=== PATIENT | female | born 1970 | race Caucasian/White ===

== ENCOUNTER 2024-07-27 07:18 | Emergency (ER) | payer BC, SELFPAY ==
--- NOTE | ~2024-07-27 | XR_ITS ---
Clinical Indication: Chest pain PA and lateral views of the chest: Comparison: None Findings: The lungs are clear, without evidence of focal consolidation or pleural effusion. Cardiome diastinal silhouette is within normal limits. Bones and soft tissues are unremarkable. Impression: Normal chest. Reviewed, dictated and finalized at location . [employer]UDIT SENIOR MANAGER Impression: Normal chest.
--- NOTE | 2024-07-27 07:22 | ECG_ITS ---
Test Date: 2024-07-27 07:28:08 Measurements Intervals [place] Rate: 95 P: 40 MA: 167 QRS: 51 QRSD: 75 T: 35 QT: 338 QTc: 426 Interpretive Statements SINUS RHYTHM INCOMPLETE RIGHT BUNDLE BRANCH BLOCK LOW QRS VOLTAGE IN PRECORDIAL LEADS MINIMAL Q WAVES- INFERIOR LEADS BORDERLINE ST ABNORMALITY- ANTEROLATERAL LEADS BORDERLINE ECG No previous ECG available for comparison Electronically Signed On 07-27-2024 07:40:20 [employer] by Eric Koo D.O.
[2024-07-27 07:23] VITALS: BP 184/117; PULSE 95; RESP 20; TEMP 36.6; O2SAT 99
--- NOTE | 2024-07-27 07:33 | PC.NURSE ---
Patient has history of HTN, but states she moved here 2 months ago and has been out of her lisinopril for 2 weeks.
[2024-07-27 07:38] LABS: Basophils Absolute Auto 0.1 K/mm3 (0.0-0.1); Basophils Percent Auto 1.3 % (0.2-1.2); Eosinophils Absolute Auto 0.2 K/mm3 (0-0.3); Eosinophils Percent Auto 3.3 % (0-4.4); Hemoglobin 13.9 g/dL (12.0-15.0); Immature Granulocyte Absolute 0.02 K/mm3 (0.00-0.031); Immature Granulocyte Percent A 0.3 % (0-0.5); Lymphocytes Absolute Auto 1.62 K/mm3 (0.9-3.2); Lymphocytes Percent Auto 25.7 % (18.3-44.2); Mean Corpuscular HGB Conc 35.6 g/dl (32-36); Mean Corpuscular Hemoglobin 34.8 pg (26-34); Mean Corpuscular Volume 97.5 fl (80-100); Mean Platelet Volume 9.8 fl (7.4-10.4); Monocytes Absolute Auto 0.5 K/mm3 (0.1-0.6); Monocytes Percent Auto 8.4 % (2.6-8.5); Neutrophils Absolute Auto 3.8 K/mm3 (1.3-6.7); Platelet Count Result 263 k/mm3 (150-375); Red Cell Distribution Width 13.6 % (11.5-14.5); White Blood Count 6.3 K/mm3 (4.5-10.0)
[2024-07-27] MEDS: Please add drug allergy info to patient profile. 1 EACH XX (07:45)
--- NOTE | 2024-07-27 07:49 | ED_ITS ---
HPI - General Adult General Chief complaint: Chest Pain Stated complaint: COVID+ yesterday, chest pain all night Time Seen by Provider: 07/27/24 07:31 History of Present Illness HPI narrative: this is a 54-year-old female presenting with COVIDs. She started getting ill 3 days ago including cough and congestion. Since thenshe feels like she has gotten worse and is now having chest congestion, dyspnea exertion, upset stomach and general malaise. She denies fevers/chills/ Sore throat/ abdominal pain, nausea vomiting diarrhea. Patient has received 2 vaccinations against COVID. Related Data Allergies Allergy/AdvReac Type Severity Reaction Status Date / Time shellfish derived Allergy Severe Anaphylaxis Verified 07/27/24 07:53 Course Vital Signs Vital signs: Vital Signs Temperature 97.9 F 07/27/24 07:23 Pulse Rate 95 07/27/24 07:23 Respiratory Rate 20 07/27/24 07:23 Blood Pressure 184/117 H 07/27/24 07:23 Pulse Oximetry 99 07/27/24 07:23 Oxygen Delivery Room Air 07/27/24 07:23 Temperature 97.9 F 07/27/24 07:23 Pulse Rate 95 07/27/24 07:23 Respiratory Rate 20 07/27/24 07:23 Blood Pressure 184/117 H 07/27/24 07:23 Pulse Oximetry 99 07/27/24 07:23 Oxygen Delivery Room Air 07/27/24 07:23 Medical Decision Making [facility] Narrative Medical decision making narrative: -Course: 54-year-old female presenting chest congestion and dyspnea on exertion in setting COVID. workup including troponins BNP D-dimer chest x-ray and EKG were all limits. Vital signs significant for elevated blood pressure although she has hypertension has not on her medications. She will be given a dose of lisinopril and prescription as she obtains a primary care physician. otherwise the patient is well appearing with stable vital signs and has no oxygen requirements. Patient be discharged follow-up with a PCP. Given return precautions worsening shortness of breath chest pain or worsening condition. -DDX includes but is not limited to: COVID, myocarditis, pulmonary embolism, pneumonia, ACS -Co-morbidities complicating care: hypertension-untreated -Social determinants of health: recently moved to town , occasional alcohol and marijuana use -Independent interpretation of studies: labs and imaging reviewed Independent EKG interpretation: Rhythm [sinus], Rate [95], [place] -[normal], [place] -[normal], QRS [narrow], QTC [normal], T waves -[negative for concerning inversions], ST Segments - [Negative for concerning elevations] Final interpretations: [Normal Sinus Rhythm] -Interventions: Toradol, Tylenol, lisinopril, 1 L normal saline -Shared decision making / Disposition: discharged -RX lisinopril 20 mg once daily Vital Signs Vital Signs: Vital Signs Temperature 97.9 F 07/27/24 07:23 Pulse Rate 95 07/27/24 07:23 Respiratory Rate 20 07/27/24 07:23 Blood Pressure 184/117 H 07/27/24 07:23 Pulse Oximetry 99 07/27/24 07:23 Oxygen Delivery Room Air 07/27/24 07:23 Temperature 97.9 F 07/27/24 07:23 Pulse Rate 95 07/27/24 07:23 Respiratory Rate 20 07/27/24 07:23 Blood Pressure 184/117 H 07/27/24 07:23 Pulse Oximetry 99 07/27/24 07:23 Oxygen Delivery Room Air 07/27/24 07:23 Lab Data 07/27/24 07:32 07/27/24 07:32 Labs: Lab Results 07/27/24 Range/Units 07:32 WBC 6.3 (4.5-10.0) K/mm3 RBC 4.00 L (4.2-5.4) M/mm3 Hgb 13.9 (12.0-15.0) g/dL Hct 39.0 (37.0-47.0) % MCV 97.5 (80-100) fl MCH 34.8 H (26-34) pg MCHC 35.6 (32-36) g/dl RDW 13.6 (11.5-14.5) % Plt Count 263 (150-375) k/mm3 MPV 9.8 (7.4-10.4) fl Immature Gran % (Auto) 0.3 (0-0.5) % Neut % (Auto) 61.0 (45.5-73.1) % Lymph % (Auto) 25.7 (18.3-44.2) % [place] % (Auto) 8.4 (2.6-8.5) % Eos % (Auto) 3.3 (0-4.4) % Baso % (Auto) 1.3 H (0.2-1.2) % Lymph # (Auto) 1.62 (0.9-3.2) K/mm3 [place] # (Auto) 0.5 (0.1-0.6) K/mm3 Eos # (Auto) 0.2 (0-0.3) K/mm3 Baso # (Auto) 0.1 (0.0-0.1) K/mm3 Abs Immat Gran (auto) 0.02 (0.00-0.031) K/mm3 Absolute Neuts (auto) 3.8 (1.3-6.7) K/mm3 Absolute Nucleated RBC 0.000 (0.0-0.012) K/mm3 Nucleated RBC % 0.0 (0.0-0.2) % PT 12.1 (11.1-14.7) Seconds INR 0.9 APTT 24.8 (22.3-36.8) Seconds D-Dimer 0.43 (<0.48) ug/mL Sodium 137 (137-145) mmol/L Potassium 4.0 (3.4-5.0) mmol/L Chloride 109 H (98-107) mmol/L Carbon Dioxide 19 L (22-30) mmol/L Anion Gap 9 (4-12) mmol/L BUN 13 (7-17) mg/dL Creatinine 1.00 (0.7-1.0) mg/dL Estim Creat Clear Calc 56 ml/min Estimated GFR 58 L (59 - ) Glucose 98 (65-110) mg/dL Calcium 8.8 (8.4-10.2) mg/dL Total Bilirubin 0.4 (0.2-1.3) mg/dL AST 37 H (14-36) U/L ALT 29 (6-35) U/L Alkaline Phosphatase 83 (38-126) U/L Troponin I < 0.012 (0.000-0.034) ng/mL NT-Pro-B Natriuret Pep 739 H (19.9-100) pg/mL Total Protein 8.0 (6.3-8.2) g/dL Albumin 4.4 (3.5-5.1) g/dL Lipase 80 (23-300) U/L Discharge Plan Discharge Clinical Impression: COVID, Hypertension Patient Disposition: Home, Self-Care Condition: Stable Instructions: Antibiotic Form, COVID-19 (Coronavirus Disease 2019) (ED) Additional Instructions: You were seen emergency department COVID infection. your laboratory studies and chest x-ray were normal. Please take the lisinopril for hypertension and follow-up with a primary care physician as needed. Please return for chest pain difficulty breathing or for condition is getting worse. Prescriptions: New lisinopril 20 mg tablet 20 mg PO DAILY Qty: 30 0RF Follow-up/Referrals: PHYSICIAN,W[facility]TER [Non-Staff] -
[2024-07-27 07:50] LABS: INR 0.9; Prothrombin Time 12.1 Seconds (11.1-14.7)
[2024-07-27 07:51] LABS: Partial Thromboplastin Time 24.8 Seconds (22.3-36.8)
[2024-07-27 08:02] LABS: Alanine Aminotransferase 29 U/L (6-35); Albumin Level 4.4 g/dL (3.5-5.1); Alkaline Phosphatase 83 U/L (38-126); Anion Gap 9 mmol/L (4-12); Aspartate Amino Transferase 37 U/L (14-36); Bilirubin,Total 0.4 mg/dL (0.2-1.3); Blood Urea Nitrogen 13 mg/dL (7-17); Calcium 8.8 mg/dL (8.4-10.2); Carbon Dioxide 19 mmol/L (22-30); Chloride 109 mmol/L (98-107); Estimated CRCL calculation 56 ml/min; Estimated Glomerular Filt Rate 58; Glucose 98 mg/dL (65-110); Lipase 80 U/L (23-300); Sodium 137 mmol/L (137-145)
[2024-07-27] MEDS: SODIUM CHLORIDE 0.9% IV 1,000 ML 999 ML IV CONT (08:11)
[2024-07-27] MEDS: KETOROLAC 15 MG/ML VIAL (*BKC) IV PUSH (08:11)
[2024-07-27] MEDS: ACETAMINOPHEN 500 MG TABLET 1000 MG PO (08:12)
[2024-07-27] MEDS: lisinopriL 20 MG TABLET PO (08:12)
[2024-07-27 08:19] LABS: Troponin I < 0.012 ng/mL (0.000-0.034)
[2024-07-27 08:30] LABS: D Dimer 0.43 ug/mL (<0.48)
[2024-07-27 08:43] LABS: NT Pro B Type Natriuretic Pept 739 pg/mL (19.9-100)
[2024-07-27 09:17] VITALS: BP 145/87; PULSE 76; RESP 18; O2SAT 100
== END 2024-07-27 09:31 | disposition home or self-care (01) ==
PROVIDERS: Emergency Provider Emergency Medicine
DX: U07.1 COVID-19 (principal); I10 Essential (primary) hypertension
CPT/HCPCS: 36415; 71046; 80053; 83690; 83880; 84484; 85025; 85380; 85610; 85730; 93005; 96361; 96374; 99284; A9270; J1885; J7030